=== PATIENT | female | born 1990 | race Caucasian/White ===

== ENCOUNTER → 2016-12-22 | Outpatient (CLI) | payer BC ==
[2016-12-22 10:21] VITALS: BP 122/79
== END ==
LOC: MHUC 10:04
PROVIDERS: ATTEND Physician Assistant
DX: H66.001 Acute suppurative otitis media without spontaneous rupture of ear drum, right ear (principal)
CPT/HCPCS: 99213

== ENCOUNTER → 2017-01-14 | Outpatient (CLI) | payer BC ==
[~2017-01-14] MED LIST: ALBU8.5H6 IH; AMOX1TAB12 PO; AZIT250T81 PO; CEFD300C PO; IBUP-15 PO; OXYC1TAB87 PO; PNV1CAPS13 PO; PRED20TA PO
[2017-01-14 11:06] VITALS: BP 114/77
--- NOTE | 2017-01-14 11:06 | Urgent Care T Sheet Gen (E) ---
Intake General Temperature (Fahrenheit): 98.7 Pulse: 94 Blood Pressure Systolic: 114 Blood Pressure Diastolic: 77 Respirations: 20 SPO2: 95 Description of Symptoms Patient presents with illness since Thursday. Notes chest congestion, cough and SOB. No fever. Body aches and malaise. Wonders if she has bronchitis again. Been taking OTC cold meds without improvement. History of Present Illness Allergies: Coded Allergies: No Known Drug Allergies (Unverified , 08/08/13) Home Meds Active Scripts Prednisone 20 Mg Yazosa85 Mg PO DAILY #6 TAB Prov:ARMIN SALINAS 01/14/17 Azithromycin (Zithromax Z-Josue)6 Tab/Pkt Skcpov512 Mg PO SEE INSTRUCTIONS #6 TAB Ref 0 Day One: Take 2 tablets by mouth Days Two-Five: Take 1 tablet by mouth Prov:ARMIN SALINAS 01/14/17 Azithromycin (Zithromax Z-Josue)6 Tab/Pkt Fwffpb603 Mg PO SEE INSTRUCTIONS #6 TAB Ref 0 Day One: Take 2 tablets by mouth Days Two-Five: Take 1 tablet by mouth Prov:ARMIN SALINAS 12/24/16 Amoxicillin/Clavulanate Potassium (Augmentin 875mg/125mg)1 Each Tablet1 Tab PO BID #14 TAB Ref 0 Prov:ARMIN SALINAS 12/22/16 Albuterol Sulfate (Ventolin HFA)8 Gm Hfa.aer.ad2 Puff IH QID PRN SHORTNESS OF BREATH #1 INHALER Prov:ARMIN SALINAS 06/30/16 Prednisone 20 Mg Uxpvir84 Mg PO BID #6 TAB Prov:ARMIN SALINAS 06/30/16 Azithromycin (Zithromax Z-Josue)6 Tab/Pkt Miukkx044 Mg PO SEE INSTRUCTIONS #6 TAB Ref 0 Day One: Take 2 tablets by mouth Days Two-Five: Take 1 tablet by mouth Prov:ARMIN SALINAS 06/30/16 Reported Medications Oxycodone HCl/Acetaminophen (Percocet 5mg/325mg)1 Each Tablet1-2 Tab PO Q6H PRN Pain 08/17/13 Ibuprofen (Motrin IB)200 Mg Pjdmnm157 Mg PO Q6H PRN 08/17/13 Pnv Comb.no58/Iron Bisgly/Fa ( Capsule)1 Each Capsule1 Each PO DAILY 08/08/13 Respiratory Constitutional Symptoms: No Fever, Malaise EENTM: Nose Congestion Throat pain Respiratory: Cough Short of breath Wheezing Cardiovascular: No symptoms reported Gastrointestinal/Abdominal: No symptoms reported Estimated Date of Delivery: 08-20-13 All Other Systems Reviewed Remaining Systems: All other systems reviewed with negative findings Past Hlqnals-Uubdfj-Vyhpts Hx Reproductive System : 2 Abortions: 0 Living Children: 1 HIV/AIDS: Negative Physical Exam Physical Exam General Appearance: WD/WN No apparent distress Eyes, Ears, Nose, Throat Ex: TMs normal Pharyngeal erythema (cobblestone appearance with PND) Other (nasal congestion.) Neck Exam: SuppleNo Lymphadenopathy Respiratory Exam: Rhonchi Wheezes Cardiovascular Exam: Regular rate, rhythm Departure Urgent Care Impression Impression: Primary Impression: Bronchitis Departure Disposition: 01 HOME OR SELF-CARE Condition: Stable Referrals: BERRY BUSTOS MD (PCP) Additional Instructions: I have started the patient on a Zpak and Prednisone for treatment Rest. Fluids Return as needed. May take Mucinex as directed for cough/chest congestion Patient understands DC instructions. All questions were answered. Scripts Prednisone 20 Mg Tlkwmo95 Mg PO DAILY #6 TAB Prov:ARMIN SALINAS 01/14/17 Azithromycin (Zithromax Z-Josue)6 Tab/Pkt Kjtbto749 Mg PO SEE INSTRUCTIONS #6 TAB Ref 0 Day One: Take 2 tablets by mouth Days Two-Five: Take 1 tablet by mouth Prov:ARMIN SALINAS 01/14/17 End of report . ARMIN SALINAS Jan 14, 2017 10:36
--- NOTE | 2017-01-19 11:38 | Urgent Care Follow Up Note (E) ---
Urgent Care Follow Up Note patient called stating her chest congestion and cough is still present despite treatment. Patient was seen on Thursday and was started on Prednisone and Zpak. States her chest still feels full and raspy. No fever. Hasn't been taking Mucinex since starting abx Explained to her that she is still having the effects of the Zpak even though the pills are gone. I did however add Cefdinir to her regimen for additional coverage. Asked her to resume the Mucinex for added relief Rest. Fluids Return as needed. Patient understands instructions. Scripts Cefdinir 300 Mg Pvzzhuk502 Mg PO BID #14 CAP Prov:ARMIN SALINAS 01/19/17 Prednisone 20 Mg Gpiwsc48 Mg PO DAILY #6 TAB Prov:ARMIN SALINAS 01/14/17 Azithromycin (Zithromax Z-Josue)6 Tab/Pkt Gjvfdy040 Mg PO SEE INSTRUCTIONS #6 TAB Ref 0 Day One: Take 2 tablets by mouth Days Two-Five: Take 1 tablet by mouth Prov:ARMIN SALINAS 01/14/17 ARMIN SALINAS Jan 19, 2017 11:38
== END ==
LOC: MHUC 10:08
PROVIDERS: ATTEND Physician Assistant
DX: J40 Bronchitis, not specified as acute or chronic (principal)
CPT/HCPCS: 99213

== ENCOUNTER → 2017-03-09 | Outpatient (CLI) | payer BC ==
[2017-03-09 12:27] VITALS: BP 117/82
--- NOTE | 2017-03-09 12:27 | Urgent Care T Sheet Gen (E) ---
Intake General Temperature (Fahrenheit): 98.7 Pulse: 103 Blood Pressure Systolic: 117 Blood Pressure Diastolic: 82 Respirations: 20 SPO2: 97 Description of Symptoms Patient presents with bilateral ear pain, PND and cough since Thursday. No fever. Son just had strep so she is concerned about that. No meds to treat her symptoms. Sore throat and cough is present throughout the day and night. History of Present Illness Allergies: Coded Allergies: No Known Drug Allergies (Unverified , 08/08/13) Home Meds Active Scripts Azithromycin (Zithromax Z-Josue)6 Tab/Pkt Aulwik835 Mg PO SEE INSTRUCTIONS #6 TAB Ref 0 Day One: Take 2 tablets by mouth Days Two-Five: Take 1 tablet by mouth Prov:ARMIN SALINAS 03/09/17 Cefdinir 300 Mg Msdiuuu081 Mg PO BID #14 CAP Prov:ARMIN SALINAS 01/19/17 Prednisone 20 Mg Xurajq11 Mg PO DAILY #6 TAB Prov:ARMIN SALINAS 01/14/17 Azithromycin (Zithromax Z-Josue)6 Tab/Pkt Jotenb800 Mg PO SEE INSTRUCTIONS #6 TAB Ref 0 Day One: Take 2 tablets by mouth Days Two-Five: Take 1 tablet by mouth Prov:ARMIN SALINAS 01/14/17 Azithromycin (Zithromax Z-Josue)6 Tab/Pkt Wotbck127 Mg PO SEE INSTRUCTIONS #6 TAB Ref 0 Day One: Take 2 tablets by mouth Days Two-Five: Take 1 tablet by mouth Prov:ARMIN SALINAS 12/24/16 Amoxicillin/Clavulanate Potassium (Augmentin 875mg/125mg)1 Each Tablet1 Tab PO BID #14 TAB Ref 0 Prov:AMRIN SALINAS 12/22/16 Albuterol Sulfate (Ventolin HFA)8 Gm Hfa.aer.ad2 Puff IH QID PRN SHORTNESS OF BREATH #1 INHALER Prov:ARMIN SALINAS 06/30/16 Prednisone 20 Mg Xeparq95 Mg PO BID #6 TAB Prov:ARMIN SALINAS 06/30/16 Azithromycin (Zithromax Z-Josue)6 Tab/Pkt Zqohfu071 Mg PO SEE INSTRUCTIONS #6 TAB Ref 0 Day One: Take 2 tablets by mouth Days Two-Five: Take 1 tablet by mouth Prov:ARMIN SALINAS 06/30/16 Reported Medications Oxycodone HCl/Acetaminophen (Percocet 5mg/325mg)1 Each Tablet1-2 Tab PO Q6H PRN Pain 08/17/13 Ibuprofen (Motrin IB)200 Mg Scambu686 Mg PO Q6H PRN 08/17/13 Pnv Comb.no58/Iron Bisgly/Fa ( Capsule)1 Each Capsule1 Each PO DAILY 08/08/13 Respiratory Constitutional Symptoms: No syptoms reported EENTM: Ear pain Nose Congestion Throat pain Respiratory: Cough Cardiovascular: No symptoms reported Gastrointestinal/Abdominal: No symptoms reported Estimated Date of Delivery: 08-20-13 All Other Systems Reviewed Remaining Systems: All other systems reviewed with negative findings Past Mrnojbo-Rtofba-Qxfypr Hx Reproductive System : 2 Abortions: 0 Living Children: 1 HIV/AIDS: Negative Physical Exam Physical Exam General Appearance: WD/WN No apparent distress Eyes, Ears, Nose, Throat Ex: TM abnormal (R) (red) TM abnormal (L) (red, bulging) Pharyngeal erythema (streaky with PND. no exudates.) Other (clear, thick nasal congestion. red and swollen nasal turbinates) Neck Exam: SuppleNo Lymphadenopathy Respiratory Exam: Lungs clear Normal breath sounds Cardiovascular Exam: Regular rate, rhythm Departure Urgent Care Impression Impression: Primary Impression: Otitis media Qualified Code: H66.003 - Acute suppurative otitis media without spontaneous rupture of ear drum, bilateral Departure Disposition: 01 HOME OR SELF-CARE Condition: Stable Referrals: BERRY BUSTOS MD (PCP) Additional Instructions: Reassured the patient that I don't believe her throat pain is due to strep. I did however place her on Zpak for her ears which has strep coverage Rest. Fluids Allergy meds for PND. May take either Claritin, Zyrtec or Ruthy Rest. Fluids Return as needed Patient understands DC instructions. All questions were answered. Scripts Azithromycin (Zithromax Z-Josue)6 Tab/Pkt Ncjlty589 Mg PO SEE INSTRUCTIONS #6 TAB Ref 0 Day One: Take 2 tablets by mouth Days Two-Five: Take 1 tablet by mouth Prov:ARMIN SALINAS 03/09/17 End of report . ARMIN SALINAS March 09, 2017 11:17
== END ==
LOC: MHUC 10:47
PROVIDERS: ATTEND Physician Assistant
DX: H66.003 Acute suppurative otitis media without spontaneous rupture of ear drum, bilateral (principal)
CPT/HCPCS: 99213

== ENCOUNTER → 2017-03-13 | Outpatient (CLI) | payer BC ==
[~2017-03-13] MED LIST changes: +ALBU8.5H2 IH
[2017-03-13 11:49] VITALS: BP 126/85
--- NOTE | 2017-03-13 11:49 | Urgent Care T Sheet Gen (E) ---
Intake General Temperature (Fahrenheit): 100.3 Pulse: 97 Blood Pressure Systolic: 126 Blood Pressure Diastolic: 85 Respirations: 20 SPO2: 94 Description of Symptoms Patient presents with worse symptoms from the last time she was seen. Was started on a Zpak on March 09 for sinusitis. Patient states she is feeling worse , joshua in her chest. Notes congestion, cough and malaise. Fever started today. No new meds. States she has gotten bronchitis 3 times since Jun which is unusual for her. History of Present Illness Allergies: Coded Allergies: No Known Drug Allergies (Unverified , 08/08/13) Home Meds Active Scripts Albuterol Sulfate (Proair HFA)8.5 Gm Hfa.aer.ad2 Puff IH QID PRN SHORTNESS OF BREATH #1 INHALER Prov:ARMIN SALINAS 03/13/17 Prednisone 20 Mg Zgakln76 Mg PO DAILY #6 TAB Prov:ARMIN SALINAS PA 03/13/17 Cefdinir 300 Mg Xpsrkpj617 Mg PO BID #14 CAP Prov:ARMIN SALINAS PA 03/13/17 Azithromycin (Zithromax Z-Josue)6 Tab/Pkt Lpayas977 Mg PO SEE INSTRUCTIONS #6 TAB Ref 0 Day One: Take 2 tablets by mouth Days Two-Five: Take 1 tablet by mouth Prov:ARMIN SALINAS 03/09/17 Cefdinir 300 Mg Riwfjam396 Mg PO BID #14 CAP Prov:ARMIN SALINAS PA 01/19/17 Prednisone 20 Mg Shfgtj79 Mg PO DAILY #6 TAB Prov:ARMIN SALINAS PA 01/14/17 Azithromycin (Zithromax Z-Josue)6 Tab/Pkt Oygpns603 Mg PO SEE INSTRUCTIONS #6 TAB Ref 0 Day One: Take 2 tablets by mouth Days Two-Five: Take 1 tablet by mouth Prov:ARMIN SALINAS PA 01/14/17 Azithromycin (Zithromax Z-Josue)6 Tab/Pkt Wjixpd046 Mg PO SEE INSTRUCTIONS #6 TAB Ref 0 Day One: Take 2 tablets by mouth Days Two-Five: Take 1 tablet by mouth Prov:ARMIN SALINAS PA 12/24/16 Amoxicillin/Clavulanate Potassium (Augmentin 875mg/125mg)1 Each Tablet1 Tab PO BID #14 TAB Ref 0 Prov:ARMIN SALINAS OSCAR 12/22/16 Albuterol Sulfate (Ventolin HFA)8 Gm Hfa.aer.ad2 Puff IH QID PRN SHORTNESS OF BREATH #1 INHALER Prov:ARMIN SALINAS OSCAR 06/30/16 Prednisone 20 Mg Mjgiqm54 Mg PO BID #6 TAB Prov:ARMIN SALINAS OSCAR 06/30/16 Azithromycin (Zithromax Z-Josue)6 Tab/Pkt Zkdmge364 Mg PO SEE INSTRUCTIONS #6 TAB Ref 0 Day One: Take 2 tablets by mouth Days Two-Five: Take 1 tablet by mouth Prov:ARMIN SALINAS OSCAR 06/30/16 Reported Medications Oxycodone HCl/Acetaminophen (Percocet 5mg/325mg)1 Each Tablet1-2 Tab PO Q6H PRN Pain 08/17/13 Ibuprofen (Motrin IB)200 Mg Ephphq823 Mg PO Q6H PRN 08/17/13 Pnv Comb.no58/Iron Bisgly/Fa ( Capsule)1 Each Capsule1 Each PO DAILY 08/08/13 Respiratory Constitutional Symptoms: Fever Malaise EENTM: Nose Congestion Throat pain Respiratory: Cough Short of breathNo Wheezing Cardiovascular: No symptoms reported Gastrointestinal/Abdominal: No symptoms reported Estimated Date of Delivery: 08-20-13 All Other Systems Reviewed Remaining Systems: All other systems reviewed with negative findings Past Xerswcw-Zkirnf-Qkgzjo Hx Reproductive System : 2 Abortions: 0 Living Children: 1 HIV/AIDS: Negative Physical Exam Physical Exam General Appearance: WD/WN No apparent distress Eyes, Ears, Nose, Throat Ex: TM abnormal (R) (red) Pharyngeal erythema ( irritated, not necessarily infected) Other (nasal congestion) Neck Exam: SuppleNo Lymphadenopathy Respiratory Exam: Rhonchi Wheezes Cardiovascular Exam: Regular rate, rhythm Departure Urgent Care Impression Impression: Primary Impression: Bronchitis Departure Disposition: HOME OR SELF-CARE Condition: Stable Referrals: BERRY BUSTOS MD (PCP) Additional Instructions: I have started her on cefdinir for infection, Prednisone for inflammation and wheezes, and ProAir for shortness of breath. Surprised the Zpak didn't work however she is still getting some benefit from it. Patient wonders why she keeps getting bronchitis. I asked if she has allergies and she isn't sure but states her nose does drain a lot. Suggested she take Claritin daily. Rest. Fluids Tylenol as needed for pain, no NSAIDs with steroid Return as needed Patient understands DC instructions. All questions were answered. Scripts Albuterol Sulfate (Proair HFA)8.5 Gm Hfa.aer.ad2 Puff IH QID PRN SHORTNESS OF BREATH #1 INHALER Prov:ARMIN SALINAS 03/13/17 Prednisone 20 Mg Sdmiqa22 Mg PO DAILY #6 TAB Prov:ARMIN SALINAS 03/13/17 Cefdinir 300 Mg Sokzsew276 Mg PO BID #14 CAP Prov:ARMIN SALINAS 03/13/17 End of report . ARMIN SALINAS March 13, 2017 10:47
== END ==
LOC: MHUC 10:22
PROVIDERS: ATTEND Physician Assistant
DX: J40 Bronchitis, not specified as acute or chronic (principal)
CPT/HCPCS: 99213